=== PATIENT | male | born 1985 | race Caucasian/White ===

== ENCOUNTER 2017-06-11 12:49 | Emergency (ER) | payer OTHER ==
[~2017-06-11] VITALS: Ht 185.4 cm; Wt 140.0 kg
[2017-06-11 12:50] VITALS: BP 187/102; PULSE 95; RESP 20; TEMP 98.5; O2SAT 98
[2017-06-11] MEDS ORDERED: SODIUM CHLOR 0.9% 1000 ML INJ 1,000 ML IV ONE (14:08)
[2017-06-11] MEDS ORDERED: ONDANSETRON HCL 4 MG/2 ML VIAL IVP ONE (14:15)
[2017-06-11] MEDS ORDERED: SODIUM CHLORIDE 0.9% FLUSH 10 ML FLUSH IVF PRN (14:15)
--- NOTE | 2017-06-11 14:15 | PD ---
HPI Chief Complaint: Dizziness Time Seen by Provider: 14:07 Travel History International Travel<30 days: No Contact w/Intl Traveler<30days: No Traveled to known affect area: No History of Present Illness HPI 31 year old male presents to the emergency department for evaluation of an episode of dizziness that occurred just earlier today. Patient states he was out walking today and had an episode of dizziness that lasted probably 5-10 minutes. No syncope. He states he sat down and use a warm washcloth and the symptoms resolve. He has not had any episodes since. He did have one episode of vomiting with the dizziness. No further vomiting. Patient states he did drink some alcohol last night. He flew yesterday approximately 3 hours. He is concerned because he has a history of PE. He was on Xarelto but quit taking it approximately 6-8 months ago. Patient states that he quit taking it because he did not like to follow-up at the physician's office. He states that he had similar symptoms the last time he was diagnosed with a PE. However, it was worse and he actually had syncope. Patient denies any chest pain shortness breath. No abdominal pain. No diarrhea or constipation. He denies any leg swelling. No hemoptysis. Patient states he feels at his baseline at this time. Patient states he has no other medical problems. He is not supposed to be taking any other medications. His mother at bedside is concerned because he is off his Xarelto and both the patient and his mother with like to make sure he doesn't have a reoccurrence of pulmonary embolism. Moderate severity. No exacerbating factor. Rest, warm washcloth resolved symptoms. No pain. PFSH Past Medical History Hx Anticoagulant Therapy: No (HX PE OFF XARELTO 6 MONTHS) Social History Alcohol Use: Yes Tobacco Use: No Substance Use: No Allergies-Medications (Allergen,Severity, Reaction): Coded Allergies: No Known Allergies (Unverified , 06/11/17) Review of Systems Except as stated in HPI: all other systems reviewed are Neg Physical Exam Narrative GENERAL: Well-nourished, well-developed male patient, afebrile. SKIN: Focused skin assessment warm/dry. HEAD: Normocephalic. Atraumatic. EYES: No scleral icterus. No injection or drainage. PERRLA. EOM intact. ENT: Mucosa pink and moist. No erythema or exudates. No uvular edema. No uvular , palatal, or tonsillar deviation. Airway patent. Nasal turbinates appear normal without nasal blood, purulent drainage or septal hematoma. Bilateral tympanic membranes are clear without erythema or perforation. NECK: Supple, trachea midline. No JVD or lymphadenopathy. CARDIOVASCULAR: Regular rate and rhythm without murmurs, gallops, or rubs. Bilateral radial and pedal pulses are 2+. RESPIRATORY: Breath sounds equal bilaterally. No accessory muscle use. Lungs sounds are clear to auscultation. GASTROINTESTINAL: Abdomen soft, non-tender, nondistended. MUSCULOSKELETAL: No cyanosis, or edema. Bilateral upper and lower extremity strength 5/5. All extremities are neurovascularly intact. BACK: Nontender without obvious deformity. No CVA tenderness. NEUROLOGICAL: Awake and alert. Cranial nerves II through XII intact. Motor and sensory grossly within normal limits. Five out of 5 muscle strength in all muscle groups. Normal speech. Finger to nose is normal bilaterally. Heel-to- steele is normal bilaterally. Data Data Last Documented VS Vital Signs Date Time Temp Pulse Resp B/P (MAP) Pulse Ox O2 Delivery O2 Flow Rate FiO2 06/11/17 14:43 Nasal Cannula 06/11/17 12:50 98.5 95 20 187/102 (130) 98 Orders Orders Electrocardiogram (06/11/17 14:08) Complete Blood Count With Diff (06/11/17 14:08) Comprehensive Metabolic Panel (06/11/17 14:08) Magnesium (Mg) (06/11/17 14:08) Ckmb (Isoenzyme) Profile (06/11/17 14:08) Troponin I (06/11/17 14:08) Act Partial Throm Time (Ptt) (06/11/17 14:08) Prothrombin Time / Inr (Pt) (06/11/17 14:08) Ct Brain W/O Iv Contrast(Rout) (06/11/17 14:08) Ecg Monitoring (06/11/17 14:08) Iv Access Insert/Monitor (06/11/17 14:08) Oximetry (06/11/17 14:08) Ondansetron Inj (Zofran Inj) (06/11/17 14:15) Sodium Chloride 0.9% Flush (Ns Flush) (06/11/17 14:15) Sodium Chlor 0.9% 1000 Ml Inj (Ns 1000 M (06/11/17 14:08) Orthostatic Vital Signs (06/11/17 14:08) D-Dimer (06/11/17 14:08) CKMB (06/11/17 14:35) CKMB% (06/11/17 14:35) Labs Laboratory Tests Test 06/11/17 14:35 White Blood Count 9.6 TH/MM3 Red Blood Count 5.16 MIL/MM3 Hemoglobin 15.6 GM/DL Hematocrit 45.2 % Mean Corpuscular Volume 87.6 FL Mean Corpuscular Hemoglobin 30.2 PG Mean Corpuscular Hemoglobin Concent 34.4 % Red Cell Distribution Width 13.1 % Platelet Count 170 TH/MM3 Mean Platelet Volume 7.7 FL Neutrophils (%) (Auto) 85.6 % Lymphocytes (%) (Auto) 8.3 % Monocytes (%) (Auto) 4.4 % Eosinophils (%) (Auto) 1.2 % Basophils (%) (Auto) 0.5 % Neutrophils # (Auto) 8.2 TH/MM3 Lymphocytes # (Auto) 0.8 TH/MM3 Monocytes # (Auto) 0.4 TH/MM3 Eosinophils # (Auto) 0.1 TH/MM3 Basophils # (Auto) 0.0 TH/MM3 CBC Comment DIFF FINAL Differential Comment Prothrombin Time 10.0 SEC Prothromb Time International Ratio 1.0 RATIO Activated Partial Thromboplast Time 26.6 SEC D-Dimer Quantitative (PE/DVT) 0.29 MG/L FEU Blood Urea Nitrogen 13 MG/DL Creatinine 1.27 MG/DL Random Glucose 108 MG/DL Total Protein 6.1 GM/DL Albumin 2.9 GM/DL Calcium Level 8.4 MG/DL Magnesium Level 2.1 MG/DL Alkaline Phosphatase 55 U/L Aspartate Amino Transf (AST/SGOT) 36 U/L Alanine Aminotransferase (ALT/SGPT) 68 U/L Total Bilirubin 0.8 MG/DL Sodium Level 141 MEQ/L Potassium Level 4.4 MEQ/L Chloride Level 108 MEQ/L Carbon Dioxide Level 27.8 MEQ/L Anion Gap 5 MEQ/L Estimat Glomerular Filtration Rate 66 ML/MIN Total Creatine Kinase 219 U/L Creatine Kinase MB 2.9 NG/ML Troponin I 0.03 NG/ML MDM Medical Decision Making Medical Screen Exam Complete: Yes Emergency Medical Condition: Yes Medical Record Reviewed: Yes Interpretation(s) ct brain - CONCLUSION: 1. No acute intracranial abnormality. Differential Diagnosis Dehydration versus electrolyte abnormality versus intracranial abnormality versus vertigo versus PE Narrative Course 31-year-old male presents to the emergency department for evaluation of episode of dizziness. He states he had similar symptoms previously was diagnosed with PE. He denies any chest pain shortness breath, but states he had not had previously with PE either. He is off of his Xarelto. EKG, CBC, CMP, magnesium, CK, troponin, PTT, PT/INR, d-dimer ordered and pending. CT of the brain is ordered and pending. Orthostatic vital signs are ordered and pending. Patient is given normal saline 1 L IV bolus, Zofran 4 mg IV. EKG shows sinus rhythm, heart rate 86, no acute ST changes CBC shows no acute abnormality. CMP shows no acute abnormality. Magnesium is 2.1. CK is 219. Troponin 0.03. Coags are unremarkable. D-dimer is 0.29. CT of the brain shows no acute intracranial abnormality. I discussed results with the patient. He still states he has no symptoms that would like to go home. Patient will be discharged home. He is to follow-up with a primary care physician. He is return here for any acute worsening of symptoms. The patient was discharged in stable condition with instructions, including return instructions and follow up instructions. Diagnosis Primary Impression: Dizziness Referrals: Primary Care Physician call for appointment Patient Instructions: Dizziness (ED), General Instructions Additional Instructions: Follow-up with your primary care physician. Return to the emergency department for any acute worsening of symptoms. Med/Other Pt SpecificInfo: No Change to Meds Disposition: 01 DISCHARGE HOME Condition: Stable Celso,Pat LARSEN Jun 11, 2017 14:15
--- NOTE | 2017-06-11 14:42 | RADRPT ---
EXAM DATE/TIME: 06/11/2017 14:27 [facility] COMPARISON: No previous studies available for comparison. INDICATIONS : Diaay and nauseated. RADIATION DOSE: 36.48 CTDIvol (mGy) MEDICAL HISTORY : Previous PE, Lupus, anticoagulant syndrome. SURGICAL HISTORY : ENCOUNTER: Initial ACUITY: 1 day PAIN SCALE: 0/10 LOCATION: cranial TECHNIQUE: Multiple contiguous axial images were obtained of the head. Using automated exposure control and adj ustment of the mA and/or kV according to patient size, radiation dose was kept as low as reasonably a chievable to obtain optimal diagnostic quality images. DICOM format image data is available electro nically for review and comparison. FINDINGS: CEREBRUM: The ventricles are normal for age. No evidence of midline shift, mass lesion, hemorrhage or acute in farction. No extra-axial fluid collections are seen. POSTERIOR FOSSA: The cerebellum and brainstem are intact. The 4th ventricle is midline. The cerebellopontine angle i s unremarkable. EXTRACRANIAL: The visualized portion of the orbits is intact. SKULL: The calvaria is intact. No evidence of skull fracture. CONCLUSION: 1. No acute intracranial abnormality. Mansoor Evans MD on June 11, 2017 at 14:39 Board Certified Radiologist. This report was verified electronically.
[2017-06-11 15:10] LABS: AUTOMATED NEUTROPHIL # 8.2 TH/MM3 (1.8-7.7); BASOPHIL % 0.5 % (0.0-2.0); EOSINOPHIL # 0.1 TH/MM3 (0-0.4); EOSINOPHIL % 1.2 % (0.0-4.0); HEMATOCRIT 45.2 % (39.0-51.0); HEMO FLAGS DIFF FINAL; LYMPH % 8.3 % (9.0-44.0); LYMPHOCYTE # 0.8 TH/MM3 (1.0-4.8); MEAN CELL VOLUME 87.6 FL (80.0-100.0); MEAN CORPUSCULAR HEMOGLOBIN 30.2 PG (27.0-34.0); MEAN CORPUSCULAR HGB CONC 34.4 % (32.0-36.0); MONO % 4.4 % (0.0-8.0); NEUT % 85.6 % (16.0-70.0); PLATELET COUNT 170 TH/MM3 (150-450); RED BLOOD COUNT 5.16 MIL/MM3 (4.50-5.90); RED CELL DISTRIBUTION WIDTH 13.1 % (11.6-17.2); WHITE BLOOD COUNT 9.6 TH/MM3 (4.0-11.0)
[2017-06-11 15:24] LABS: ALT (GPT) 68 U/L (12-78); ANION GAP 5 MEQ/L (5-15); AST (GOT) 36 U/L (15-37); BICARBONATE 27.8 MEQ/L (21.0-32.0); BLOOD UREA NITROGEN 13 MG/DL (7-18); CHLORIDE 108 MEQ/L (98-107); GLOMERULAR FILTRATION RATE 66 ML/MIN (>89); MAGNESIUM 2.1 MG/DL (1.5-2.5); POTASSIUM 4.4 MEQ/L (3.5-5.1); SODIUM (NA) 141 MEQ/L (136-145)
[2017-06-11 15:28] LABS: ALKALINE PHOSPHATASE 55 U/L (45-117); CREATINE KINASE 219 U/L (39-308); TOTAL BILIRUBIN ADULT 0.8 MG/DL (0.2-1.0)
[2017-06-11 15:34] LABS: APTT (PATIENT) 26.6 SEC (24.3-30.1)
[2017-06-11 15:45] LABS: CKMB 2.9 NG/ML (0.5-3.6)
[2017-06-11 16:45] VITALS: BP 168/84
--- NOTE | 2017-06-13 23:27 | EKG ---
Date Performed: 06/11/2017 Time Performed: 14:45:33 PTAGE: 31 years EKG: Sinus rhythm MODERATE INTRAVENTRICULAR CONDUCTION DELAY BORDERLINE ECG NO PREVIOUS TRACING DOCTOR: Onur Borges Interpretating Date/Time 06/13/2017 23:25:39
== END 2017-06-11 16:47 | disposition home or self-care (01) ==
LOC: NEPC 12:49
DX: R42 Dizziness and giddiness (principal); Z86.711 Personal history of pulmonary embolism
CPT/HCPCS: 70450; 80053; 82550; 82552; 83735; 84484; 85025; 85379; 85610; 85730; 93005; 96361; 96374; 99285; J2405; J7030